=== PATIENT | male | born 2000 | race Caucasian/White ===

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

== ENCOUNTER 2022-08-04 14:15 | Emergency (ER) | payer BC ==
[2022-08-04 14:24] VITALS: BP 136/72; PULSE 70; RESP 18; TEMP 97.8; BMI 24.3
== END 2022-08-04 14:55 | disposition home or self-care (01) ==
LOC: FER 14:15
DX: R55 Syncope and collapse (principal)
CPT/HCPCS: 93005; 99283-25